=== PATIENT | female | born 1940 | race African-American/Black ===

== ENCOUNTER 2016-07-08 06:01 | Day surgery (SDC) | payer OTHER ==
[~2016-07-08] VITALS: Ht 165.1 cm; Wt 80.5 kg
[~2016-07-08 06:01] MED LIST: AMLO-511 PO; ASPI-556 PO; ATOR20TA86 PO; CARV3 PO; FAMO20 PO; FLUT16H NASAL; FURO40 PO; LOSA50TA37 PO; MOME13HF IH; MONT10TA21 PO; POTA8CAP17 PO
[2016-07-08] MEDS ORDERED: SODIUM CHLORIDE 0.9% 1,000 ML IV ONE ×2 (06:15→06:30)
[2016-07-08] MEDS ORDERED: FentaNYL CITRATE-PF 100 MCG/2 ML VIAL ONE (07:56)
[2016-07-08] MEDS ORDERED: MIDAZOLAM HCL 2 MG/2 ML VIAL ONE (07:56)
[2016-07-08] MEDS ORDERED: MethylPREDNISolone SOD SUCC 125 MG/2 ML VIAL IVP ONE (08:30)
[2016-07-08] MEDS ORDERED: MethylPREDNISolone SOD SUCC 125 MG/2 ML VIAL ONE (08:51)
[2016-07-08] MEDS ORDERED: LIDOCAINE HCL 2% 30 ML JELLY TP ONE (16:30)
[2016-07-08] MEDS ORDERED: LIDOCAINE HCL 4% 50 ML SOLUTION TP ONE (16:30)
[2016-07-08] MEDS ORDERED: ALBUTEROL SULFATE 2.5 MG/0.5 ML NEB SOLUTION NEB ONE (16:30)
[2016-07-08] MEDS ORDERED: BENZOCAINE 20% 50 MCG/SPRAY 57 GM TP ONE (16:30)
[2016-07-08] MEDS ORDERED: OXYGEN THERAPY IH SCH (20:00)
== END 2016-07-08 10:20 | disposition home or self-care (01) ==
LOC: SURGERY 06:01
PROVIDERS: ATTEND Internal Medicine Critical Care Medicine
DX: J38.4 Edema of larynx (principal); B37.0 Candidal stomatitis; J44.9 Chronic obstructive pulmonary disease, unspecified; M54.9 Dorsalgia, unspecified; F17.200 Nicotine dependence, unspecified, uncomplicated; Z95.5 Presence of coronary angioplasty implant and graft
CPT/HCPCS: 31623; 31624; 36415; 71010; 87015 ×2; 87070; 87101; 87205; 87220; 88108; 88184; 88185; 88312; 93005; J2250; J2930; J3010; J7030